=== PATIENT | female | born 1930 | race Caucasian/White ===

== ENCOUNTER → 2017-06-10 | Outpatient (REF) ==
[~2017-06-10] MED LIST: CO Q-1010 MG PO; FERROUS SU325 MG/TAB PO; FOLIC ACID 40400 MCG PO; METOPROLOL25 MG PO; MULTIPLE VITAMI1 TAB PO; THERAGRAN1 TA1 PO; VITAMIN C BUFF500 MG PO; XANAX0.25 MG PO
== END ==
LOC: ZLAB.WCH 17:54
DX: Z01.89 Encounter for other specified special examinations (principal)

== ENCOUNTER → 2017-09-09 | Outpatient (REF) | LOC: ZLAB.WCH 14:24 | DX: Z01.89 Encounter for other specified special examinations (principal) ==